=== PATIENT | male | born 1940 ===

== ENCOUNTER 2018-10-01 09:22 | Day surgery (SDC) | payer OTHER ==
[~2018-10-01 09:22] MED LIST: LIPITOR20 MG PO; NORVASC5 MG PO; VALSARTAN160 MG PO
== END 2018-10-01 16:50 | disposition home or self-care (01) ==
LOC: CIR.AMB 09:22
DX: R32 Unspecified urinary incontinence (principal)
CPT/HCPCS: 53440; C1771